=== PATIENT | male | born 1985 | race Caucasian/White ===

== ENCOUNTER 2018-09-16 02:51 | Emergency (ER) | payer SELFPAY ==
[~2018-09-16] VITALS: Ht 170.2 cm; Wt 95.0 kg
[2018-09-16] MEDS ORDERED: ONDANSETRON 4MG ODT PO PRN (06:15)
[2018-09-16 06:46] LABS: BASOPHILS % 0.5 % (0.0-2.0); EOSINOPHILS % 2.7 % (0.0-5.0); HEMATOCRIT. 44.4 % (42.0-52.0); HEMOGLOBIN. 15.2 g/dL (14.0-18.0); LYMPHOCYTES % 25.5 % (20.0-50.0); MEAN CORPUSCULAR HEMOGLOBIN 28.8 pg (28.0-32.0); MEAN CORPUSCULAR VOLUME 84.2 fL (80.0-94.0); MEAN PLATELET VOLUME 8.2 fl (7.4-10.4); MONOCYTES % 7.5 % (2.0-8.0); NEUTROPHILS % 63.8 % (40.0-76.0); PLATELET 291 x1000/uL (130-400); RED BLOOD CELL COUNT 5.28 mill/uL (4.7-6.1); RED CELL DISTRIBUTION WIDTH 13.8 % (11.6-14.6)
[2018-09-16 06:52] LABS: CHLORIDE 104 mEq/L (98-107)
[2018-09-16 06:57] LABS: CLARITY URINE CLEAR (CLEAR); COLOR URINE YELLOW (YELLOW); KETONES URINE NEGATIVE (NEGATIVE); LEUKOCYTE ESTERASE URINE NEGATIVE (NEGATIVE); NITRITE URINE NEGATIVE (NEGATIVE); OCCULT BLOOD URINE NEGATIVE (NEGATIVE); PH URINE 5.5 (4.5-8.0); PROTEIN URINE NEGATIVE (NEGATIVE); SPECIFIC GRAVITY URINE 1.018 (1.005-1.030); UROBILINOGEN URINE 0.2 E.U./dL (0.2-1.0)
[2018-09-16] MEDS ORDERED: SODIUM CHLORIDE 0.9% 1,000 ML IV ONE (07:00)
[2018-09-16 07:07] LABS: PROTHROMBIN TIME 10.4 sec (9.1-11.1)
[2018-09-16 08:04] VITALS: BP 121/79
== END 2018-09-16 08:08 | disposition home or self-care (01) ==
LOC: ER 02:51
DX: R42 Dizziness and giddiness (principal); R11.0 Nausea; R94.5 Abnormal results of liver function studies
CPT/HCPCS: 36415; 80053; 81003; 83690; 85025; 85610; 93005; 96360; 99285; J7030; Q0162

== ENCOUNTER 2019-03-01 08:59 | Emergency (ER) | payer SELFPAY ==
[~2019-03-01] VITALS: Ht 167.6 cm; Wt 93.0 kg
[2019-03-01 10:45] VITALS: BP 129/87
== END 2019-03-01 10:55 | disposition home or self-care (01) ==
LOC: ER 08:59
DX: J30.9 Allergic rhinitis, unspecified (principal); H10.023 Other mucopurulent conjunctivitis, bilateral
CPT/HCPCS: 99283